=== PATIENT | male | born 1960 | race Caucasian/White ===

== ENCOUNTER 2018-12-02 18:06 | Emergency (ER) | payer OTHER ==
[~2018-12-02] VITALS: Ht 160 cm; Wt 86.2 kg
[2018-12-02] MEDS ORDERED: AMLODIPINE BESY10 MG PO (18:10)
[2018-12-02] MEDS ORDERED: AZITHROMYCIN 2250 MG PO (18:11)
[2018-12-02] MEDS ORDERED: TYLENOL325 MG PO (19:00)
[2018-12-02 19:02] VITALS: BP 139/84
== END 2018-12-02 19:15 | disposition home or self-care (01) ==
LOC: ER 18:06
DX: S39.012A Strain of muscle, fascia and tendon of lower back, initial encounter (principal); M25.552 Pain in left hip; Z88.0 Allergy status to penicillin; W00.0XXA Fall on same level due to ice and snow, initial encounter; Y93.89 Activity, other specified; Y92.89 Other specified places as the place of occurrence of the external cause; Y99.8 Other external cause status

== ENCOUNTER 2019-11-20 22:27 | Emergency (ER) | payer OTHER ==
[~2019-11-20] VITALS: Ht 160 cm; Wt 81.7 kg
[~2019-11-20 22:27] MED LIST: AMLODIPINE BESY10 MG PO; AZITHROMYCIN 2250 MG PO; TYLENOL325 MG PO
[2019-11-20] MEDS ORDERED: TRAMADOL 50 MG50 MG PO (22:50)
[2019-11-20] MEDS ORDERED: ATOVAQUONE750 MG/5 M PO (22:51)
[2019-11-20] MEDS ORDERED: BIKTARVY 50-201 EACH PO (22:52)
[2019-11-20] MEDS ORDERED: OLANZAPINE2.5 MG PO (22:53)
[2019-11-20] MEDS ORDERED: FAMOTIDINE 20 M20 MG PO (22:53)
[2019-11-20] MEDS ORDERED: GABAPENTIN800 M1 PO (22:53)
[2019-11-20 22:56] LABS: ABSOLUTE NEUTROPHILS 5.2 thou/uL (1.4-8.2); EOSINOPHILS 2.5 % (0.0-3.0); HEMOGLOBIN 13.5 gm/dL (14.0-18.0); LYMPHOCYTES 26.5 % (24.0-44.0); MCH 27.3 pg (26.0-34.0); MCHC 32.9 g/dL (28.0-37.0); MCV 82.8 fL (80.0-100.0); MONOCYTES 10.5 % (1.0-8.0); PLATELET COUNT 241 thou/uL (150-400); POLYS 59.5 % (36.0-66.0); RBC 4.95 mil/uL (4.50-6.00); RDW 16.1 % (10.5-14.5); WBC 8.7 thou/uL (4.0-11.0)
[2019-11-20 22:59] LABS: ANION GAP 8 mmol/L (7-16); BUN 19 mg/dL (7-18); CALCIUM 9.3 mg/dL (8.5-10.1); CHLORIDE 101 mmol/L (98-107); CO2 27 mmol/L (21-32); CREATININE 1.1 mg/dL (0.7-1.3); GLUCOSE 85 mg/dL (74-106); POTASSIUM 4.2 mmol/L (3.5-5.1); SODIUM 136 mmol/L (136-145)
[2019-11-20 23:09] LABS: ALBUMIN 3.5 g/dL (3.4-5.0); DIRECT BILIRUBIN 0.2 mg/dL (<0.1-0.2); SGOT 21 U/L (15-37); SGPT 24 U/L (30-65); TOTAL BILIRUBIN 0.8 mg/dL (<0.1-1.0); TOTAL PROTEIN 7.6 g/dL (6.4-8.2); TROPONIN-I <0.06 ng/mL (<0.06)
[2019-11-21] MEDS ORDERED: MOBIC15 MG PO (01:41)
[2019-11-21 01:50] VITALS: BP 112/82
--- NOTE | 2019-11-21 11:25 | EKG ---
[address] [place] [place] [address] ELECTROCARDIOGRAM REPORT Name: JOSEPH WU Room #: DEP LANA Cardona#: [id number] Admission: 11/20/19 Attend Phys: Discharge: 11/21/19 Date of : 64 Report #: [id number] THIS REPORT FOR: //name// [facility] Test Date: 2019-11-20 Test Time: 22:32:10 Pat Name: JOSEPH WU Department: Room: Gender: Netsuite Consultant: RASHIDA : 1960 Requested By: Barbara Celis Order Number: [id number] MD: Wilver Perez Measurements Intervals [place] Rate: 89 P: 26 LA: 162 QRS: 10 QRSD: 86 T: 68 QT: 378 QTc: 460 Interpretive Statements Sinus rhythm No previous ECG available for comparison Electronically Signed On 11-21-2019 11:24:45 [employer] by Wilver Perez [email or web address] <ELECTRONICALLY SIGNED> By: Wilver Perez MD 11/21/19 1124 31 31 Wilver Perez MD /EPI
--- NOTE | 2019-11-21 11:25 | EKG ---
[place] [address] [facility] [place] [address] ELECTROCARDIOGRAM REPORT Name: JOSEPH WU Room #: DEP LANA Cardona#: [id number] Admission: 11/20/19 Attend Phys: Discharge: 11/21/19 Date of : 64 Report #: [id number] THIS REPORT FOR: //name// [facility] ED Test Date: 2019-11-21 Test Time: 00:53:32 Pat Name: JOSEPH WU Department: Room: Gender: M Claims Service Representative: tk : 1960 Requested By: Barbara Celis Order Number: [id number] MD: Wilver Perez Measurements Intervals [place] Rate: 71 P: 41 DE: 166 QRS: 54 QRSD: 90 T: 79 QT: 402 QTc: 437 Interpretive Statements Sinus rhythm Consider left ventricular hypertrophy No previous ECG available for comparison Electronically Signed On 11-21-2019 11:25:06 [employer] by Wilver Perez [email or web address] <ELECTRONICALLY SIGNED> By: Wilver Perez MD 11/21/19 1125 0053 0053 Wilver Perez MD /MARISOL
== END 2019-11-21 01:50 | disposition home or self-care (01) ==
LOC: ER 22:27
PROVIDERS: Emergency Medicine
DX: R07.89 Other chest pain (principal); B20 Human immunodeficiency virus [HIV] disease; Z88.0 Allergy status to penicillin